=== PATIENT | female | born 1975 | race Caucasian/White ===

== ENCOUNTER 2019-04-15 04:12 | Emergency (ER) | payer BC ==
[~2019-04-15] VITALS: Ht 170.2 cm; Wt 77.1 kg
[2019-04-15] MEDS ORDERED: ONDANSETRON 4 MG/2 ML VIAL IV ONE (04:45)
[2019-04-15] MEDS ORDERED: HYDROMORPHONE 1 MG/1 ML DISP.SYRIN IV ONE (04:45)
[2019-04-15] MEDS ORDERED: IV NORMAL SALINE 1000 ML BAG IV ONE (04:45)
[2019-04-15] MEDS ORDERED: HYDROMORPHONE 1 MG/1 ML DISP.SYRIN ONE (04:46)
[2019-04-15] MEDS ORDERED: ONDANSETRON 4 MG/2 ML VIAL ONE (04:46)
--- NOTE | 2019-04-15 04:46 | NUR ---
Pt refuses blood to be drawn. Keeps stating she does not want her blood to be drawn, only wants IV to be inserted for medications. Notified Dr. Salazar.
--- NOTE | 2019-04-15 04:51 | NUR ---
IV fluids infusing, but pt is now refusing IV pain medication & anti-nausea medication. States she wants something to eat. Informed pt she needs to wait for after CT scan is done & resulted.
[2019-04-15 05:02] LABS: *BILIRUBIN,URIN NEGATIVE (NEGATIVE); *BLOOD, URINE NEGATIVE (NEGATIVE); *CLARITY,URINE CLEAR (CLEAR); *KETONES,URINE NEGATIVE (NEGATIVE); *UROBILINOGEN,URINE 0.2 E.U./dl (NORMAL); LEUKOCYTE ESTERASE ,URINE NEGATIVE (NEGATIVE); NITRITE, URINE NEGATIVE (NEGATIVE); UGLUCOSE NEGATIVE (NEGATIVE)
[2019-04-15 05:08] LABS: *COLOR,URINE STRAW (YELLOW)
[2019-04-15 05:16] LABS: *URINE HCG, QUAL NEGATIVE (NEGATIVE)
--- NOTE | 2019-04-15 05:30 | NUR ---
Pt went to radiology dept for CT scan.
--- NOTE | 2019-04-15 05:53 | NUR ---
IV removed. Catheter intact and site benign. Pressure and 4x4 gauze applied to site. No bleeding noted.
--- NOTE | 2019-04-15 05:54 | NUR ---
Patient discharged to home in stable conditon. Written and verbal after care instructions given. Patient verbalizes understanding of instructions. Pt walked out of ER in stable gait. No acute distress noted.
[2019-04-15 05:56] VITALS: BP 118/71
== END 2019-04-15 06:08 | disposition home or self-care (01) ==
LOC: ER 04:26
DX: R10.31 Right lower quadrant pain (principal); R10.32 Left lower quadrant pain
CPT/HCPCS: 74176; 81001; 84703; 99284; J2405; A4663; J1170; J7030